=== PATIENT | male | born 1960 | race Caucasian/White ===

== ENCOUNTER 2025-07-11 20:38 | Emergency (ER) | payer MEDICARE, SELFPAY ==
[2025-07-11 20:56] VITALS: BP 161/80; PULSE 75; RESP 24; TEMP 36.9; O2SAT 96; BMI 24.6
[2025-07-11 21:02] LABS: Hematocrit 37.4 % (42.0-52.0); Hemoglobin 12.5 g/dL (14.1-18.0); Immature Granulocytes % 0.3 %; Mean Corpuscular HGB Conc 33.4 g/dL (31.8-35.4); Mean Corpuscular Hemoglobin 30.6 pg (27.0-31.2); Mean Corpuscular Volume 91.7 fl (80-94); Nucleated Red Blood Cells % 0 %; Platelet Count 230 K/mm3 (142-424); Red Blood Count 4.08 M/mm3 (4.60-6.20); Red Cell Distribution Width-SD 46.3 fL; White Blood Count 9.0 K/mm3 (4.8-10.8)
--- NOTE | 2025-07-11 21:11 | ED_ITS ---
<Statement entered by Mirella Belcher MD - 07/11/25 22:42> I was consulted by the LIZETTE, and we discussed the complexity of the problems being addressed. I approved the treatment and management plan for this patient's care in the emergency department, thus performing a substantive portion of the medical decision making. Mirella Belcher MD, TONYA, FACEP Discharge Plan Disposition Patient Disposition: Home, Self-Care Prescriptions Prescriptions: New cephalexin 500 mg capsule 500 mg PO BID 10 Days Qty: 20 0RF mupirocin [Centany] 2 % ointment 1 applic topical BID 14 Days Qty: 22 0RF No Action losartan 50 mg Tablet 50 mg PO DAILY atorvastatin 40 mg Tablet 40 mg PO HS carvedilol 25 mg Tablet 25 mg PO BID Rx Instructions: must administer with a meal/food cetirizine 10 mg Tablet 10 mg PO DAILY clopidogrel 75 mg Tablet 75 mg PO DAILY amlodipine 10 mg Tablet 10 mg PO DAILY pantoprazole 40 mg Tablet,Delayed Release (Dr/Ec) 40 mg PO DAILY losartan 25 mg Tablet 25 mg PO DAILY aspirin 81 mg Tablet 81 mg PO DAILY buspirone 15 mg Tablet 15 mg PO BID diclofenac sodium 1 % Gel 2 g TOPICAL QID Rx Instructions: apply to single elbow, wrist or hand; for hand includes palm/fingers/back of hand baclofen 5 mg Tablet 5 mg PO TID sertraline 150 mg Capsule 150 mg PO DAILY acetaminophen 500 mg Tablet 500 mg PO Q6H PRN (Reason: Pain (Scale Score 1-3)) guaifenesin [Robitussin Chest Congestion] 100 mg/5 mL Liquid 200 mg PO Q4H PRN (Reason: Cough) Referrals Follow up/Referrals: Provider,Referral, [Primary Care Provider, Medical] - See instructions Activity Restrictions/Add. Instructions Additional Instructions/Restrictions: Please return for the venous ultrasound tomorrow as scheduled. Clinical Impressions Clinical Impression: Rash and nonspecific skin eruption, Impetigo, Edema of left upper arm Instructions Patient Instructions: DI for Impetigo, DI for Unilateral Peripheral Edema, DI for Skin Abscess Print Language Print Language: Irish Discharge ED Provider: Mirella Belcher General Adult HPI General Chief complaint: Skin/Abscess/Foreign Body Stated complaint: Wound Time Seen by Provider: 07/11/25 20:41 Mode of Arrival: EMS Source of Information: Patient and Relative Description of Symptoms (Recalled from ER Triage Doc. by RN): debi present from [facility] via EMS for allergic reaction. patient believes he is allergic to his daily BP meds, but cannot stop because everytime he stops the BP meds, he has another stroke . he has multiple broken and open areas of skin. Related Data Home Medications ?Medication ?Instructions ?Recorded ?Confirmed acetaminophen 500 mg tablet 500 mg PO Q6H PRN Pain (Sc gil 07/11/25 07/11/25 Score 1-3) amlodipine 10 mg tablet 10 mg PO DAILY 07/11/2510/31 aspirin 81 mg tablet 81 mg PO DAILY 07/11/2510/31 atorvastatin 40 mg tablet 40 mg PO HS 07/11/25 5 baclofen 5 mg tablet 5 mg PO TID 07/11/25 5 buspirone 15 mg tablet 15 mg PO BID 07/11/25 carvedilol 25 mg tablet 25 mg PO BID 07/11/25 cetirizine 10 mg tablet 10 mg PO DAILY 07/11/2510/31 clopidogrel 75 mg tablet 75 mg PO DAILY 07/11/2510/31 diclofenac sodium 1 % topical gel 2 g topical QID 10/3107/11/25 guaifenesin 100 mg/5 mL oral liquid 200 mg PO Q4H PRN Cough 07/11/25 07/11/25 losartan 25 mg tablet 25 mg PO DAILY 07/11/2510/31 losartan 50 mg tablet 50 mg PO DAILY 07/11/2510/31 pantoprazole 40 mg tablet,delayed 40 mg PO DAILY 07/1107/11/25 release sertraline 150 mg capsule 150 mg PO DAILY 07/11/2510/31 Previous Rx's ?Medication ?Instructions ?Recorded cephalexin 500 mg capsule 500 mg PO BID 10 days #20 ca ps 07/11/25 mupirocin 2 % topical ointment 1 applic topical BID 14 days #22 07/11/25 (Centany) grams Allergies Allergy/AdvReac Type Severity Reaction Status Date / Time No Known Allergies Allergy Verified 07/11/25 21:01 [facility] Disclaimer: The information contained in this section may have been updated after the patient was seen, as this information can be updated by other users. Medical History (Updated 07/11/25 @ 21:45 by Rhiannon Aguilar (ED), ACCESS SERVICES ASSISTANT) Osteoarthritis GERD (gastroesophageal reflux disease) Weakness Depression High cholesterol Hypertension Stroke Social History Smoking Status: Unknown if ever smoked alcohol intake: former current occupational status: other Travel in the last 8 weeks?: None ROS Obtained: Yes Systems reviewed as appropriate & no additional complaints except as documented Physical Exam General General appearance: alert and in no apparent distress Respiratory Respiratory exam: Present normal lung sounds bilaterally Cardiovascular Cardiovascular exam: Present regular rate, normal rhythm, +S1 and +S2 Neurological Exam Neurological exam: Present alert and oriented X3 Medical Decision Making Medical Records Screening: Per USPSTF and CDC recommendations, given the prevalence of disease in our region, it is our hospital?s policy to screen for HIV and viral Hepatitis for all patients aged 18 and over and those with ongoing risk factors. Surinder Inquiry Pt receiving controlled substance: No Surinder was queried for this patient: No Vital Signs: 07/11/25 20:56 Temperature 98.5 F Temperature Source Oral Pulse Rate [Right Radial] 75 Respiratory Rate 24 Blood Pressure [Right Arm] 161/80 H Blood Pressure Mean [Right Arm] 107 Blood Pressure Source [Right Arm] Automatic Cuff Blood Pressure Position [Right Arm] Sitting 02 Sat by Pulse Oximetry 96 Oxygen Delivery Method Room Air Lab Data Lab Results 07/11/25 20:53: WBC 9.0, RBC 4.08 L, Hgb 12.5 L, Hct 37.4 L, MCV 91.7, MCH 30.6, MCHC 33.4, RDW 13.6, Plt Count 230, MPV 10.6 H, Neut % (Auto) 66.0, Lymph % (Auto) 16.3, [place] % (Auto) 7.6, Eos % (Auto) 9.1, Baso % (Auto) 0.7, Neut # (Auto) 6.0, Lymph # (Auto) 1.5, [place] # (Auto) 0.7, Eos # (Auto) 0.8 H, Baso # (Auto) 0.1, D-Dimer 1.41 H, Sodium 135 L, Potassium 4.5, Chloride 102, Carbon Dioxide 30, Anion Gap 7.5, BUN 16, Creatinine 0.90, Estimated Creat Clear 91, Estimated GFR 85, Est GFR ( Amer) 103, Glucose 198 H, Calcium 8.9, Magnesium 1.9, Total Bilirubin 0.4, AST 22, ALT 18, Alkaline Phosphatase 105, Total Protein 7.2, Albumin 4.0, Globulin 3.2, Albumin/Globulin Ratio 1.3, Lipase 88 07/11/25 20:53 07/11/25 20:53 Orders (Tests/Meds): ED MEDICATIONS Generic Name Dose Route Start Last Admin Trade Name Sandipq PRN Reason Stop Dose Admin Mupirocin 30 gm 07/11/25 21:45 07/11/25 21:54 Mupirocin 2% Ointment 22gm Tube TP 08/10/25 21:44 30 gm BID SHANNON Administration Sodium Chloride 8 ml 07/11/25 20:53 07/11/25 21:25 Sodium Chloride 0.9% 10ml Vial IV 08/10/25 20:52 8 ml NEEDED PRN Administration dilute pepcid Discontinued Medications Generic Name Dose Route Start Last Admin Trade Name Sandipq PRN Reason Stop Dose Admin Hydrocodone Bitart/Acetaminophen 1 tab 07/11/25 20:50 07/11/25 21:34 Hydrocodone/Apap 5/325 Mg Tablet PO 07/11/25 20:51 1 tab ONCE ONE Administration Cephalexin HCl 1,000 mg 07/11/25 21:34 07/11/25 21:54 Cephalexin 500mg Capsule PO 07/11/25 21:35 1,000 mg ONCE ONE Administration Dexamethasone Sodium Phosphate 8 mg 07/11/25 20:53 07/11/25 21:25 Dexamethasone 4mg/Ml 1ml Vial IV 07/11/25 20:54 8 mg ONCE ONE Administration Diphenhydramine HCl 25 mg 07/11/25 20:53 07/11/25 21:25 Diphenhydramine 50mg/Ml Vial IV 07/11/25 20:54 25 mg ONCE ONE Administration Famotidine 20 mg 07/11/25 20:53 07/11/25 21:25 Famotidine 20mg/2ml Vial IV 07/11/25 20:54 20 mg ONCE ONE Administration ORDERS Category Date Time Status CBC [Complete Blood Count Auto Diff] Stat Lab 07/11/25 20:53 Completed Comprehensive Metabolic Panel Stat Lab 07/11/25 20:53 Completed D-Dimer Stat Lab 07/11/25 20:53 Completed Lipase Stat Lab 07/11/25 20:53 Completed Magnesium Stat Lab 07/11/25 20:53 Completed Medical Decision Narrative: patient is a 65-year-old male presenting to the emergency department for evaluation of rash on right arm, right neck and left arm. The left arm has swelling and a rash. Of note patient has had a stroke in the past and has left- sided deficits and weakness on the left side. Patient is hemodynamically stable and nontoxic-appearing upon arrival, afebrile. Differential diagnosis includes allergic reaction to a medicine, rash, among others. Workup will be conducted with hematologic labs white count was 9.Patient's H&H was 12 and 37, dimer was 1.41. We cannot rule out a clot in the left arm as it is swollen. Dr. Belcher and I both assessed the arm. This has been going on for months. Dr. Belcher and I decided to do an outpatient DVT ultrasound. We are going to have patient come back tomorrow for this scan.Patient can be sent home after outpatient order is complete and meds have been given. The outpatient Doppler that [facility] recently did was done on 1028 and it was normal. Patient says that his arm is more swollen and painful than it was on 1028 we will repeat the Doppler. Patient is safe for discharge back to [facility] Critical Care Critical Care Time Critical Care Time: No
[2025-07-11 21:15] LABS: Alanine Aminotransferase 18 U/L (12-78); Albumin Level 4.0 g/dl (3.5-5.0); Albumin/Globulin Ratio 1.3 (1.1-1.8); Alkaline Phosphatase 105 U/L (38-126); Anion Gap 7.5 mEq/L (5-15); Aspartate Amino Transferase 22 U/L (17-59); Bilirubin,Total 0.4 mg/dl (0.2-1.3); Blood Urea Nitrogen 16 mg/dl (9-20); Calcium 8.9 mg/dl (8.4-10.2); Carbon Dioxide 30 mmol/L (22.0-30.0); Chloride 102 mmol/L (98-107); Creatinine Clearance Estimated 91 mL/min (50-200); Creatinine,Serum 0.90 mg/dl (0.66-1.25); Estimated Glomerular Filt Rate 85 ml/min (>60); GFR (African American) 103 ML/MIN (>60); Globulin 3.2 g/dL (1.3-3.2); Glucose 198 mg/dl (74-100); Lipase 88 U/L (23-300); Magnesium 1.9 mg/dl (1.6-2.3); Potassium 4.5 mmoL/L (3.5-5.1); Sodium 135 mmol/L (136-145); Total Protein,Serum 7.2 g/dl (6.3-8.2)
[2025-07-11 21:20] LABS: D-Dimer 1.41 ug/mL (0.0-0.5)
[2025-07-11] MEDS: FAMOTIDINE 20MG/2ML VIAL 20 MG IV (21:25)
[2025-07-11] MEDS: DEXAMETHASONE 4MG/ML 1ML VIAL 8 MG IV (21:25)
[2025-07-11] MEDS: SODIUM CHLORIDE 0.9% 10ML VIAL 8 ML IV (21:25)
[2025-07-11] MEDS: HYDROCODONE/APAP 5/325 MG TABLET 1 TAB PO (21:34)
[2025-07-11] MEDS: MUPIROCIN 2% OINTMENT 22GM TUBE 30 GM TP (21:54)
[2025-07-11 22:08] VITALS: BP 163/94; PULSE 73; RESP 20; TEMP 36.6; O2SAT 100
--- NOTE | 2025-07-11 22:23 | PC.NURSE ---
report called to Len at [facility].
--- NOTE | 2025-07-11 22:32 | PC.NURSE ---
ems notified of need for transport by Christa SILVA at [phone]
== END 2025-07-11 22:56 | disposition home or self-care (01) ==
PROVIDERS: Nurse Practitioner; Emergency Provider Student in an Organized Health Care Education/Training Program
DX: L01.00 Impetigo, unspecified (principal); R22.32 Localized swelling, mass and lump, left upper limb; I10 Essential (primary) hypertension; E78.5 Hyperlipidemia, unspecified; Z86.73 Personal history of transient ischemic attack (TIA), and cerebral infarction without residual deficits
CPT/HCPCS: 80053; 83690; 83735; 85025; 85378; 96374; 96375; 99284; J1100; J1200; J1308